=== PATIENT | male | born 1985 | race Hispanic/Latino ===

== ENCOUNTER 2017-01-14 10:55 | Outpatient (CLI) | payer OTHER ==
[2017-01-14 11:19] LABS: Hematocrit 44.6 % (35.5-45.6); Hemoglobin 15.3 gm/dl (11.8-15.2); Mean Corpuscular HGB Conc 34 % (32-34); Mean Corpuscular Hemoglobin 27 pg (28-32); Mean Corpuscular Volume 80 fl (84-94); Platelet Count 236 K/mm3 (140-440); Red Blood Count 5.59 M/mm3 (3.65-5.03); Red Cell Distribution Width 12.8 % (13.2-15.2); White Blood Count 8.7 K/mm3 (4.5-11.0)
[2017-01-14 11:37] LABS: Anion Gap 16 mmol/L; BUN/Creatinine Ratio 10.83; Blood Urea Nitrogen 13 mg/dL (9-20); Calcium 9.6 mg/dL (8.4-10.2); Carbon Dioxide 27 mmol/L (22-30); Chloride 101.6 mmol/L (98-107); Glucose 101 mg/dL (75-100); Sodium 141 mmol/L (137-145)
== END 2017-01-14 10:56 | disposition home or self-care (01) ==
LOC: LAB 10:55
PROVIDERS: ATTEND Surgery
DX: L05.91 Pilonidal cyst without abscess (principal)
CPT/HCPCS: 36415; 80048; 85027

== ENCOUNTER 2017-02-10 14:58 | Outpatient (CLI) | payer OTHER | END 2017-02-10 14:59 | disposition home or self-care (01) | LOC: LABHHL 14:58 | PROVIDERS: ATTEND Surgery | DX: L05.91 Pilonidal cyst without abscess (principal) | CPT/HCPCS: 88304 ==